=== PATIENT | female | born 1975 | race African-American/Black ===

== ENCOUNTER 2017-05-08 17:46 | Emergency (ER) | payer MEDICAID, OTHER ==
[2017-05-08 21:39] LABS: Urine Bilirubin Negative (Negative); Urine Glucose Negative (Negative); Urine Nitrite Negative (Negative)
[2017-05-08] MEDS ORDERED: Ketorolac INJ* 30 MG/ML 1 ML VIAL IV PUSH ONE (22:05)
[2017-05-08 22:09] LABS: Add Diff/Slide Review? Slide Review Added; Comments Flag Yes; Hematocrit 38 % (35-47); Hemoglobin 12.5 g/dl (12.0-16.0); Mean Corpuscular HGB Conc 33 g/dl (31-36); Mean Corpuscular Hemoglobin 30 pg (27-31); Mean Corpuscular Volume 89 fL (80-97); Mean Platelet Volume 9 um3 (7.4-10.4); Red Blood Count 4.22 10^6/ul (4.0-5.4); Red Cell Distribution Width 15 % (10.5-15); White Blood Count 4.2 10^3/ul (3.5-10.8)
[2017-05-08] MEDS ORDERED: NS 0.9% 1000 ML* 1,000 ML BOLUS ONE (22:15)
[2017-05-08 22:23] LABS: ALT 9 U/L (7-52); AST 15 U/L (13-39); Albumin 4.3 g/dL (3.2-5.2); Alkaline Phosphatase 47 U/L (34-104); Amylase 143 U/L (29-103); Anion Gap 6 mmol/L (2-11); BUN/Creatinine Ratio 14.2 (8-20); Blood Urea Nitrogen 15 mg/dL (6-24); C Reactive Protein 2.05 mg/L (< 5.00); CO2 Carbon Dioxide 27 mmol/L (22-32); Calcium 9.1 mg/dL (8.6-10.3); Chloride 106 mmol/L (101-111); EGFR African American 73.8 (>60); EGFR Non-African American 57.4 (>60); Globulin 3.3 g/dL (2-4); Glucose 86 mg/dL (70-100); Lipase 55 U/L (11.0-82.0); Potassium 3.8 mmol/L (3.5-5.0); Sodium 139 mmol/L (133-145); Total Protein 7.6 g/dL (6.4-8.9)
[2017-05-09] MEDS ORDERED: Iodixanol* (CONTRAST) 320 MG/ML 100 ML SDV IV ONE (00:50)
[2017-05-09] MEDS ORDERED: Cyclobenzaprine TAB* 10 MG PO ONE (03:48)
[2017-05-09 04:13] VITALS: BP 95/71
--- NOTE | 2017-05-09 07:49 | RAD ---
HISTORY: Chest pain, shortness of breath COMPARISONS: None VIEWS: 4: Frontal dual-energy and lateral views of the chest. FINDINGS: CARDIOMEDIASTINAL SILHOUETTE: The cardiomediastinal silhouette is normal. EDUARDO: The eduardo are normal. PLEURA: The costophrenic angles are sharp. No pleural abnormalities are noted. LUNG PARENCHYMA: The lungs are clear. ABDOMEN: The upper abdomen is clear. There is no subphrenic gas. BONES AND SOFT TISSUES: No bone or soft tissue abnormalities are noted. OTHER: None. IMPRESSION: NO ACTIVE CARDIOPULMONARY DISEASE.
--- NOTE | 2017-05-09 08:27 | RAD ---
INDICATION: Right flank pain. COMPARISON: Comparison is made with a prior chest x-ray study from May 08, 2017. TECHNIQUE: A CT angiogram of the chest and abdomen was performed with intravenous contrast following intravenous injection of 75 ml of Visipaque 320 nonionic contrast. Contiguous axial sections were obtained from the lung apices through the iliac crests. Images were reconstructed in the coronal and sagittal planes and in a 3-D volume rendered reformatted. FINDINGS: CT ANGIOGRAM OF THE CHEST: There is suboptimal contrast phase dictation of the pulmonary arteries although no intraluminal filling defect or pulmonary embolism is seen. The heart is within normal limits in size. No pericardial effusion is present. There is suboptimal opacification of the aorta. The thoracic aorta is normal in caliber and demonstrates homogeneous contrast opacification without evidence for dissection. No significant enlarged mediastinal or hilar lymph nodes are seen. The lungs are clear with the exception of minimal dependent bilateral lower lobe subsegmental atelectasis. No pleural effusion is seen. CT ANGIOGRAM OF THE ABDOMEN AND PELVIS: The abdominal aorta is normal in caliber. There is no evidence for dissection or stenosis. The celiac axis, superior and inferior mesenteric arteries appear patent without evidence for hemodynamically significant stenosis. There are single bilateral renal arteries without hemodynamically significant stenosis. The liver and spleen are normal in size without significant focal abnormality. The gallbladder is partially contracted. No calcified gallstones are seen. No pancreatic abnormality is seen. The kidneys and adrenal glands are normal in size. No hydronephrosis is seen. No significant focal renal abnormality is seen. No significant enlarged retroperitoneal lymph nodes are seen. The stomach is distended with food debris. The visualized portion of the small bowel colon appear nondistended. No bowel wall thickening is seen. There is a small periumbilical hernia containing fat. No free intraperitoneal air or fluid is seen. No significant focal osseous abnormality is seen. IMPRESSION: 1. LIMITED STUDY, NO EVIDENCE FOR PULMONARY EMBOLISM OR AORTIC DISSECTION. 2. NO EVIDENCE FOR ACUTE FINDING IN THE ABDOMEN OR PELVIS. 3. STOMACH DISTENDED WITH FOOD DEBRIS.
--- NOTE | 2017-05-16 11:25 | ED ---
Val Lucero Alfonso, scribed for Mally Adrian MD on 05/08/17 at 2133 . Abdominal Pain/Female - HPI Summary HPI Summary: This patient is a 42 year old F presenting to [facility] with a chief complaint of intermittent right flank pain since 30 days ago, worse since today. The patient rates the dull pain 8/10 in severity. Symptoms aggravated by palpation. Symptoms alleviated by nothing. Patient reports insomnia. Patient denies fever, dysuria, cough, SOB, vaginal discharge, and vaginal bleeding. She lives at home alone with a service dog. LMP 04/27/17. Tobacco abuse disorder. She denies PMHx of a kidney stone. PMHx includes TBI. - History of Current Complaint Chief Complaint: EDFlankPain Stated Complaint: RT SIDE PAIN Time Seen by Provider: 05/08/17 21:23 Hx Obtained From: Patient ?: No Onset/Duration: Gradual Onset, Lasting Days - 30, Worse Since - yesterday Timing: Intermittent Episode Lasting Severity Initially: Moderate Severity Currently: Moderate Pain Intensity: 8 Pain Scale Used: 0-10 Numeric Location: Flank - R Radiates: No Character: Dull Aggravating Factor(s): Other: - Palpation Alleviating Factor(s): Nothing Associated Signs and Symptoms: Positive: Other: - insomnia. Patient denies fever , dysuria, cough, SOB, vaginal discharge, and vaginal bleeding. Negative: Fever , Cough, Chest Pain, Urinary Symptoms, Vaginal Bleeding, Vaginal Discharge, Nausea, Vomiting Allergies/Adverse Reactions: Allergies Allergy/AdvReac Type Severity Reaction Status Date / Time Cephalexin [From Keflex] Allergy Severe Swelling Verified 05/06/14 09:48 Of Face,Lips,& Throat Penicillins Allergy Severe Swelling Verified 05/06/14 09:48 Of Face,Lips,& Throat Fish Allergy Allergy Anaphylatic Verified 05/08/17 17:52 Shock Lorazepam [From Ativan] Allergy Itching Verified 05/08/17 17:52 Onion Allergy Anaphylatic Verified 05/08/17 17:52 Shock Shellfish Allergy Allergy Anaphylatic Verified 05/08/17 17:52 Shock PMH/Surg Hx/FS Hx/Imm Hx Previously Healthy: No - traumatic brain injury Opthamlomology History: Denies: Hx Legally Blind EENT History: Denies: Hx Deafness Neurological History: Reports: Other Neuro Impairments/Disorders - TBI Infectious Disease History: No Infectious Disease History: Denies: Traveled Outside the [place] in Last 30 Days - Family History Known Family History: Positive: Diabetes - Social History Occupation: Disabled Lives: Alone Alcohol Use: None Substance Use Type: Reports: None Smoking Status (MU): Heavy Every Day Tobacco Smoker Review of Systems Negative: Fever Negative: Shortness Of Breath, Cough Positive: Other - Right flank pain Positive: other - Negative vaginal discharge, and vaginal bleeding. Negative: dysuria Neurological: Other - insomnia Psychological: Normal All Other Systems Reviewed And Are Negative: Yes Physical Exam Triage Information Reviewed: Yes Vital Signs On Initial Exam: Initial Vitals Temp Pulse Resp BP Pulse Ox 98.2 F 80 16 114/73 100 05/08/17 17:48 05/08/17 17:48 05/08/17 17:48 05/08/17 17:48 05/08/17 17:48 Vital Signs Reviewed: Yes Appearance: Positive: Well-Appearing, Well-Nourished, Pain Distress Skin: Positive: Warm, Skin Color Reflects Adequate Perfusion Head/Face: Positive: Normal Head/Face Inspection Eyes: Positive: Conjunctiva Clear ENT: Positive: Normal ENT inspection Neck: Positive: Supple Respiratory/Lung Sounds: Positive: Clear to Auscultation, Breath Sounds Present , Other - no resp distress Cardiovascular: Positive: RRR, Pulses are Symmetrical in both Upper and Lower Extremities, Other - Brisk capillary refill. Negative: Murmur Abdomen Description: Positive: Nontender, No Organomegaly, Soft, Other: - Right flank tenderness. Negative: Distended, Guarding, Peritoneal Signs, Pulsatile Mass Bowel Sounds: Positive: Present Musculoskeletal: Positive: Strength/ROM Intact Neurological: Positive: Sensory/Motor Intact, Alert, Oriented to Person Place, Time, Facial Symmetry, Speech Normal Psychiatric: Positive: Normal Diagnostics - Vital Signs Vital Signs Temp Pulse Resp BP Pulse Ox 05/08/17 17:48 98.2 F 80 16 114/73 100 - Laboratory Result Diagrams: 05/08/17 21:55 05/08/17 21:55 Lab Statement: Any lab studies that have been ordered have been reviewed, and results considered in the medical decision making process. - Radiology CXR Radiology Interpretation Completed By: ED Physician - NAD - CT CTA Chest Abdomen CT Interpretation Completed By: Radiologist - no PE. No aortic dissection or aneurysm. No pneumonia or pleural effusions. Small blebs upper lobes. No aortic dissection or aneurysm. No bowel obstruction, colitis, free fluid or free air in abdomen and visualized portion of pelvis. Normal appendix. Unremarkable pancreas, kidneys and gallbladder. ED physician has reviewed this radiology report and agrees. - EKG 2152 Cardiac Rate: NL - BPM 60 EKG Rhythm: Sinus Rhythm EKG Interpretation: Normal AV IV Conduction time. Normal QTc. Normal axis. NAD. Re-Evaluation - Re-Evaluation First Eval Re-Evaluation Time: 03:40 Change: Improved Comment: Her pain has improved although it is still there. Labs and imaging reviewed. The patient is agreeable to discharge. Abdominal Pain Fem Course/Dx - Course Course Of Treatment: This patient is a 42 year old F presenting to [facility] with a chief complaint of intermittent right flank pain since 30 days ago, worse since today. The patient rates the dull pain 8/10 in severity. Symptoms aggravated by palpation. Symptoms alleviated by nothing. Patient reports insomnia. Patient denies fever, dysuria, cough, SOB, vaginal discharge, and vaginal bleeding. She lives at home alone with a service dog. LMP 04/27/17. Tobacco abuse disorder. She denies PMHx of a kidney stone. PMHx includes TBI. An EKG reveals NSR. CXR reveals, per ED physician, NAD. ED physician has reviewed this radiology report and agrees. CT A/P reveals no PE. No aortic dissection or aneurysm. No pneumonia or pleural effusions. Small blebs upper lobes. No aortic dissection or aneurysm. No bowel obstruction, colitis, free fluid or free air in abdomen and visualized portion of pelvis. Normal appendix. Unremarkable pancreas, kidneys and gallbladder. ED physician has reviewed this radiology report and agrees. In the ED course the patient was given toradol and IV fluids. The cause of pt's pain is not identified by exam, labs, urine, and CT abd/pelvis with IV contrast. Serious life threats are excluded by the above testing. Pt's pain is improved after toradol. Patient will be discharged with follow up from PCP. The patient is agreeable with this plan. - Diagnoses Differential Diagnosis: Positive: Abdominal Aortic Aneurysm, ACS, Pancreatitis, Renal Colic, Other - pyelonephritis, shingles, musculoskeltal pain, pneumonia, PE, aortic dissection Provider Diagnoses: Flank pain, Elevated amylase Discharge - Discharge Plan Condition: Stable Disposition: HOME Prescriptions: Cyclobenzaprine TAB* [Flexeril 10 MG TAB*] 10 mg PO TID PRN #20 tab PRN Reason: Pain Patient Education Materials: Flank Pain (ED) Referrals: [facility] [place] PHYSICIAN REFERRAL [Outside] - 3 Days Additional Instructions: Your amylase level is elevated, which comes from your pancreas and is in saliva. You should have this value followed and repeated until it is normal. Your pancreas was normal on CT today. We did a CT of your chest and abdomen with contrast and it was unremarkable, and did not explain your right flank pain. We dispensed one tablet of flexeril, a muscle relaxant, that you may take to try to help the pain. We sent a prescription for the flexeril to [facility]. Return to the ER if symptoms worsen or persist. The documentation as recorded by the Val gordon Alfonso accurately reflects the service I personally performed and the decisions made by , Mally Adrian MD.
== END 2017-05-09 04:13 | disposition home or self-care (01) ==
LOC: MERGE 17:46 → ED 17:46
DX: R10.9 Unspecified abdominal pain (principal); R74.8 Abnormal levels of other serum enzymes; Z88.0 Allergy status to penicillin; Z72.0 Tobacco use; Z87.442 Personal history of urinary calculi; G47.00 Insomnia, unspecified; Z87.820 Personal history of traumatic brain injury
CPT/HCPCS: 36415; 71020; 71275; 74175; 80053; 81003; 82150; 83605; 83690; 84484; 84702; 85025; 85730; 86140; 93005; 96360; 96374; 96375; 99283; A9270-GY; J1885; Q9967

== ENCOUNTER 2018-04-03 17:36 | Emergency (ER) | payer OTHER ==
[2018-04-03] MEDS ORDERED: Ketorolac INJ* 60 MG/2 ML VIAL IM ONE (17:41)
[2018-04-03] MEDS ORDERED: Lidocaine PATCH 5%* 1 PATCH TRANSDERM ONE (17:50)
[2018-04-03 17:57] VITALS: BP 114/77
--- NOTE | 2018-04-03 18:51 | ED ---
HPI Chest Pain - HPI Summary HPI Summary: Patient is a 42 y/o F BIBA w/ c/o left chest, arm, neck and flank pain for the past year. She states pain has worsened over the last few days. On triage, pain is rated 7/10, nothing is noted to aggravate/alleviate pain. She states she took two Aleve yesterday, denies SOB. 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 However, she denies taking any medications. Allergies reviewed. She denies smoking and drinking alcohol. - History of Current Complaint Chief Complaint: EDChestWallPain Time Seen by Provider: 04/03/18 17:41 Hx Obtained From: Patient Hx Last Menstrual Period: 01/29/16 Onset/Duration: Started Days Ago - states pain has been present for a year w/ worsening a few days ago, Still Present Timing: Constant Initial Severity: Severe - 7/10 Pain Intensity: 7 Pain Scale Used: 0-10 Numeric - 7/10 Chest Pain Location: Discrete at: - left side Aggravating Factor(s): Nothing Alleviating Factor(s): Nothing Associated Signs and Symptoms: Positive: Chest Pain, Other: - POSITIVE: left arm pain, left flank pain, left neck pain. Negative: Shortness of Breath - Allergy/Home Medications Allergies/Adverse Reactions: Allergies Allergy/AdvReac Type Severity Reaction Status Date / Time cephalexin Allergy Severe Swelling Verified 04/03/18 17:56 Of Face,Lips,& Throat Penicillins Allergy Severe Swelling Verified 04/03/18 17:56 Of Face,Lips,& Throat fish derived Allergy Anaphylatic Verified 04/03/18 17:56 Shock lorazepam Allergy Itching Verified 04/03/18 17:56 onion Allergy Anaphylatic Verified 04/03/18 17:56 Shock shellfish derived Allergy Anaphylatic Verified 04/03/18 17:56 Shock PMH/Surg Hx/FS Hx/Imm Hx Endocrine/Hematology History: Reports: Hx Diabetes - hypoglycemia pt denied when questioned. Cardiovascular History: Denies: Hx Hypertension, Hx Pacemaker/ICD Respiratory History: Reports: Hx Asthma GI History: Reports: Hx Gastroesophageal Reflux Disease History: Denies: Hx Dialysis, Hx Renal Disease Sensory History: Denies: Hx Legally Blind, Hx Deafness, Hx Hearing Aid Opthamlomology History: Denies: Hx Legally Blind Neurological History: Reports: Hx Migraine, Hx Seizures - not confirmed, irrational, Other Neuro Impairments/Disorders - TBI Psychiatric History: Reports: Hx Anxiety, Hx Panic Disorder - ANXIETY, Hx Post Traumatic Stress Disorder - R/O PTSD, Hx Inpatient Treatment, Hx Community Mental Health Tx, Hx Schizophrenia, Hx of Violent Episodes Against Others, Other Psychiatric Issues/Disorders - PSYCHOTIC D/O Denies: Hx Eating Disorder - Surgical History Surgery Procedure, Year, and Place: TUBAL,other unspecified as an - Immunization History Date of Tetanus Vaccine: Unknown Infectious Disease History: No Infectious Disease History: Denies: History Other Infectious Disease, Traveled Outside the [place] in Last 30 Days - Family History Known Family History: Positive: Diabetes - Social History Alcohol Use: None Hx Substance Use: No Substance Use Type: Reports: None Hx Tobacco Use: Yes Smoking Status (MU): Heavy Every Day Tobacco Smoker Type: Cigarettes Amount Used/How Often: 1/2-1 PPD Length of Time of Smoking/Using Tobacco: 16 years of age Have You Smoked in the Last Year: Yes Review of Systems Positive: Chest Pain - left sided Positive: Shortness Of Breath Positive: Other - left arm pain, left flank pain, left neck pain All Other Systems Reviewed And Are Negative: Yes Physical Exam - Summary Physical Exam Summary: Appearance: Well appearing, no pain distress Skin: warm, dry, reflects adequate perfusion; no rashes, lesions, bruising Head/face: normal Eyes: EOMI, AVELINO ENT: normal Neck: supple, non-tender Respiratory: CTA, breath sounds present Cardiovascular: RRR, pulses symmetrical Abdomen: non-tender, soft Bowel Sounds: present Musculoskeletal: strength/ROM intact; posterior lateral discomfort of the left side. Neuro: normal, sensory motor intact, A&Ox3 Triage Information Reviewed: Yes Vital Signs On Initial Exam: Initial Vitals Temp Pulse Resp BP Pulse Ox 97.3 F 81 18 114/77 98 04/03/18 17:54 04/03/18 17:54 04/03/18 17:54 04/03/18 17:54 04/03/18 17:54 Vital Signs Reviewed: Yes Diagnostics - Vital Signs Vital Signs Temp Pulse Resp BP Pulse Ox 04/03/18 17:54 97.3 F 81 18 114/77 98 - Laboratory Lab Statement: Any lab studies that have been ordered have been reviewed, and results considered in the medical decision making process. - EKG 1810 Cardiac Rate: NL - rate of 75 BPM EKG Rhythm: Sinus Rhythm ST Segment: Normal EKG Interpretation: normal axis Re-Evaluation - Re-Evaluation First Eval Re-Evaluation Time: 18:45 Change: Improved Comment: Patient has a lidoderm patch on and notes pain has lessened. Patient will be discharged to home. She is agreeable with this plan. Chest Pain Course/Dx - Course Course Of Treatment: Patient with recurring left posterior thoracic/shoulder discomfort without any muscular tenderness. This appears to possibly be radicular in nature. It resolved with Lidoderm patch. EKG negative. Follow- up with primary care physician. - Chest Pain Differential Diagnosis/HQI/PQRI: Acute CT, Chest Wall, Lower Respiratory Infection, Other: - Radiculopathy - Diagnoses Provider Diagnoses: Chest wall pain, Thoracic radiculopathy Discharge - Sign-Out/Discharge Documenting (check all that apply): Patient Departure - discharge - Discharge Plan Condition: Improved Disposition: HOME Prescriptions: Lidocaine PATCH 5%* [Lidoderm 5% Patch*] 1 patch TRANSDERM DAILY #1 box Meloxicam [Mobic] 7.5 mg PO DAILY #30 tablet methylPREDNISolone [Medrol] 4 mg PO DAILY #1 tab.[id number] Patient Education Materials: Cervical Radiculopathy (ED), Chest Wall Pain (ED) Referrals: Asia Rodriges PA [Physician Breaker Machine Tender] - Oumou Handy MD [Primary Care Provider] - Additional Instructions: Call your doctor first thing in the morning to schedule follow-up. Patch may help. You may need further imaging of your thoracic spine. X-rays are very limited. Return if worse, with weakness, new symptoms, difficulty breathing, uncontrolled pain or other concerns. - Billing Disposition and Condition Condition: IMPROVED Disposition: Home - Attestation Statements Document Initiated by Scribe: Yes Documenting Scribe: Kiko Ko Provider For Whom Anson is Documenting (Include Credential): Toni Vitale MD Scribe Attestation: Kiko Lucero, scribed for Toni Vitale MD on 04/05/18 at 0611. Scribe Documentation Reviewed: Yes Provider Attestation: The documentation as recorded by the Kiko gordon accurately reflects the service I personally performed and the decisions made by me, Toni Vitale MD
[2018-04-03] MEDS ORDERED: Lidocaine Patch REMOVE* 1 NOTE MISC SCH (21:00)
--- NOTE | 2018-04-04 07:38 | RAD ---
INDICATION: Left rib and chest wall. COMPARISON: Chest x-ray May 08, 2017 TECHNIQUE: Multiple views of the ribs were obtained. FINDINGS: Bones: There is no evidence of acute rib fracture. LUNGS: The lungs are clear. There is no pneumothorax. Pleural spaces: There is no evidence of hemothorax. Other: There is a minor scoliotic deformity IMPRESSION: NO ACUTE RIB FRACTURE. R0
--- NOTE | 2018-04-04 07:40 | RAD ---
INDICATION: Possible radiculopathy COMPARISON: None TECHNIQUE: Routine five-view imaging was performed FINDINGS: Bones: There are no acute bony findings. There are no significant osteoarthritic findings. C7-T1 is not well evaluated due to interference the patient's shoulders Craniocervical junction: The odontoid and atlantodental interval are normal. Alignment: There is cervical spine straightening Disc spaces: The disc spaces are well-maintained Soft tissues: The prevertebral soft tissues are normal. IMPRESSION: . MILDLY LIMITED EXAMINATION. MILD CERVICAL SPINE STRAIGHTENING. R0
== END 2018-04-03 19:02 | disposition home or self-care (01) ==
LOC: ED 17:36
DX: R07.89 Other chest pain (principal); M54.14 Radiculopathy, thoracic region; M79.602 Pain in left arm; M54.2 Cervicalgia; Z88.0 Allergy status to penicillin; F17.210 Nicotine dependence, cigarettes, uncomplicated
CPT/HCPCS: 72040; 93005; 96372; 99282; A9270-GY; J1885

== ENCOUNTER 2019-02-03 17:52 | Emergency (ER) | payer OTHER ==
[2019-02-03 18:04] VITALS: BP 110/68
--- NOTE | 2019-02-03 18:26 | UC ---
Lower Extremity/Ankle HPI - HPI Summary HPI Summary: 43-year-old female presents for puncture wound to the bottom of her left foot after accidentally stepping on a nail earlier today. She states that she was barefoot that only the tip of the nail punctured her skin. States bled a little bit immediately after the injury. She cleaned the wound immediately after the injury. She is able to walk and bear weight. Last tetanus was in 2016. Denies joint pain, erythema, numbness, or tingling. - History of Current Complaint Chief Complaint: UCLaceration Stated Complaint: STEP ON A NAIL LT FOOT Hx Obtained From: Patient Hx Last Menstrual Period: 01/29/19 Pain Intensity: 4 - Allergies/Home Medications Allergies/Adverse Reactions: Allergies Allergy/AdvReac Type Severity Reaction Status Date / Time cephalexin Allergy Severe Swelling Verified 04/03/18 17:56 Of Face,Lips,& Throat Penicillins Allergy Severe Swelling Verified 04/03/18 17:56 Of Face,Lips,& Throat lorazepam Allergy Itching Verified 04/03/18 17:56 onion Allergy Anaphylatic Verified 04/03/18 17:56 Shock shellfish derived Allergy Anaphylatic Verified 04/03/18 17:56 Shock salmon, oysters, clams Allergy Anaphylatic Uncoded 02/03/19 18:04 Shock Home Medications: Home Medications Omeprazole 1 - 2 tab PO DAILY 02/03/19 [History Confirmed 02/03/19] PMH/Surg Hx/FS Hx/Imm Hx Respiratory History: Asthma GI/ History: Gastroesophageal Reflux Neurological History: Migraine, Other - TBI Psychological History: Schizophrenia, Other - PTSD - Surgical History Surgical History: Yes Surgery Procedure, Year, and Place: TUBAL,other unspecified as an infant - Family History Known Family History: Positive: Diabetes - Social History Occupation: Disabled Lives: With Family Alcohol Use: None Substance Use Type: None Smoking Status (MU): Heavy Every Day Tobacco Smoker Type: Cigarettes Amount Used/How Often: 1/2-1 PPD Length of Time of Smoking/Using Tobacco: 16 years of age Have You Smoked in the Last Year: Yes Household Exposure Type: Cigarettes - Immunization History Most Recent Influenza Vaccination: [facility] Most Recent Tetanus Shot: [facility] Most Recent Pneumonia Vaccination: never Review of Systems All Other Systems Reviewed And Are Negative: Yes Constitutional: Negative: Fever, Chills Skin: Positive: Other - See HPI Respiratory: Positive: Negative Cardiovascular: Positive: Negative Gastrointestinal: Positive: Negative Genitourinary: Positive: Negative Musculoskeletal: Negative: Arthralgia, Decreased ROM, Edema Neurological: Positive: Negative Is Patient Immunocompromised?: No Physical Exam - Summary Physical Exam Summary: GENERAL APPEARANCE: Well developed, well nourished, alert and cooperative, and appears to be in no acute distress. CARDIAC: Normal S1 and S2. No S3, S4 or murmurs. Rhythm is regular. There is no peripheral edema, cyanosis or pallor. Extremities are warm and well perfused. Capillary refill is less than 2 seconds. Peripheral pulses intact. LUNGS: Clear to auscultation without rales, rhonchi, wheezing or diminished breath sounds. ABDOMEN: Positive bowel sounds. Soft, nondistended, nontender. No guarding or rebound. No masses or hepatosplenomegally. MUSKULOSKELETAL: ROM intact to all extremities. No joint erythema or tenderness. Normal muscular development. Normal gait. SKIN: Skin normal color, texture and turgor. Superficial puncture wound to the plantar aspect of the left foot immediately below the base of the third toe ( see diagram). Mild tenderness with palpation. No erythema or edema noted. Triage Information Reviewed: Yes Vital Signs: Initial Vital Signs Temp 98.7 F 02/03/19 17:58 Pulse 80 02/03/19 17:58 Resp 18 02/03/19 17:58 BP 110/68 02/03/19 17:58 Pulse Ox 100 02/03/19 17:58 Vital Signs Reviewed: Yes Images Feet (Multiple View): 1 - Superficial puncture wound Lower Extremity Course/Dx - Course Course Of Treatment: 43-year-old female presents for puncture wound to the bottom of her left foot after accidentally stepping on a nail earlier today. She states that she was barefoot that only the tip of the nail punctured her skin. States bled a little bit immediately after the injury. She cleaned the wound immediately after the injury. She is able to walk and bear weight. Last tetanus was in 2016. Denies joint pain, erythema, numbness, or tingling. Afebrile. Vital signs stable. Patient had a superficial puncture wound to the plantar aspect of her left foot immediately below the base of the third toe. Mild tenderness with palpation. No erythema or edema noted. The foot was soaked and wound cleaned by the RN. The patient's tetanus was up-to-date. She is to follow-up with her primary care provider in 3-5 days for any problems or concerns. Anticipatory guidance and warning symptoms were reviewed with the patient. Verbalizes understanding and agrees with plan of care. - Differential Dx/Diagnosis Differential Diagnosis/HQI/PQRI: Cellulitis, Infection, Puncture Wound Provider Diagnosis: Puncture wound of plantar aspect of left foot Discharge - Sign-Out/Discharge Documenting (check all that apply): Patient Departure All imaging exams completed and their final reports reviewed: No Studies - Discharge Plan Condition: Stable Disposition: HOME Patient Education Materials: Puncture Wound (ED) Referrals: Oumou Handy MD [Primary Care Provider] - 3 Days Additional Instructions: You have a superficial puncture wound on the bottom of your left foot that has no evidence of any infection. Be sure to keep the wound clean using a mild soap and water. You may apply a small amount of antibiotic ointment and cover with a bandage. Your tetanus is up-to-date. Take acetaminophen (Tylenol) or ibuprofen (Advil, Motrin) according to directions as needed for pain. Follow-up with your primary care provider in 3-5 days for any problems or concerns. Seek immediate medical attention if you develop fever greater than 100.5 F, have redness that spreads, develop red streaks that are going up the foot or leg , swelling of the foot or toes, severe pain that is not managed with acetaminophen or ibuprofen, plus draining from the wound, or any worsening of symptoms. - Billing Disposition and Condition Condition: STABLE Disposition: Home - Attestation Statements Provider Attestation: I was available for consult. This patient was seen by the CELE[facility]INO. The patient was not presented to , seen by or examined by hi -Sarika Gill MD
== END 2019-02-03 18:42 | disposition home or self-care (01) ==
LOC: UCEAST 17:52
DX: S91.332A Puncture wound without foreign body, left foot, initial encounter (principal); W22.8XXA Striking against or struck by other objects, initial encounter; Y92.9 Unspecified place or not applicable; K21.9 Gastro-esophageal reflux disease without esophagitis; F20.89 Other schizophrenia; F17.210 Nicotine dependence, cigarettes, uncomplicated; Z88.0 Allergy status to penicillin
CPT/HCPCS: 99211; G0463